=== PATIENT | female | born 1975 | race Caucasian/White ===

== ENCOUNTER 2018-10-23 01:19 | Emergency (ER) | payer MEDICAID ==
[~2018-10-23] VITALS: Ht 162.6 cm; Wt 85.3 kg
[2018-10-23 01:30] VITALS: BP 146/90
--- NOTE | 2018-10-23 01:30 | NUR ---
TO BED # 09 AMBULATORY
--- NOTE | 2018-10-23 01:38 | NUR ---
Dr. Benavidez examining patient.
--- NOTE | 2018-10-23 01:40 | NUR ---
43/F c/o right wrist pain and right thumb for the past few weeks. 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 She denies any recent injury or trauma. No swelling noted at this time.
--- NOTE | 2018-10-23 02:12 | NUR ---
UPON GOING TO DISCHARGE PATIENT, PT STATED SHE DID NOT TELL THE DOCTOR ABOUT HER "COLD" AND WANTED TO BE CHECKED FOR HER "COLD." DR. ROBLES MADE AWARE.
--- NOTE | 2018-10-23 02:47 | NUR ---
X-Ray at bedside.
[2018-10-23 03:17] VITALS: BP 133/86
--- NOTE | 2018-10-23 03:17 | NUR ---
DISCHARGE PAPERS GIVEN TO PT. RX OF TESSALON PERLS GIVEN. SIDE EFFECTS EXPLANIED. INSTRUCTED TO F/U WITH PCP AND WHEN TO RETURN TO ER. PT VERBALLIZED UNDERSTANDING OF DC INSTRUCTIONS. ALL QUESTIONS ANSWERED.
== END 2018-10-23 03:17 | disposition home or self-care (01) ==
LOC: MED 01:19
DX: M25.531 Pain in right wrist (principal); B34.9 Viral infection, unspecified
CPT/HCPCS: 71045; 99283

== ENCOUNTER 2019-01-04 11:09 | Emergency (ER) | payer MEDICAID ==
[~2019-01-04] VITALS: Ht 160 cm; Wt 88.6 kg
[2019-01-04 11:16] VITALS: BP 134/93
--- NOTE | 2019-01-04 11:19 | NUR ---
Pt taken to bed 8.
--- NOTE | 2019-01-04 11:35 | NUR ---
PT PRESENTS TO ED WITH C/O LT LOWER ABD PAIN X 1 WK WITH 4 EPISODES OF DIARRHEA YESTERDAY. DENIES NAUSEA, VOMITING OR FEVER. REPORTS MEDICAL HISTORY OF ULCERATIVE COLITIS. VSS. ERMD TO EVALUATE PT.
[2019-01-04] MEDS ORDERED: ONDANSETRON 4 MG/2 ML VIAL IVP ONE (12:25)
[2019-01-04] MEDS ORDERED: MORPHINE SULFATE 4 MG/ML SYR IM ONE (12:25)
[2019-01-04] MEDS ORDERED: NACL 0.9% 1,000 ML IV ONE (12:25)
[2019-01-04 13:27] LABS: BASOPHILS # (AUTO) 0.1 K/uL (0.00-0.22); BASOPHILS % (AUTO) 0.6 % (0.0-2.0); EOSINOPHILS # (AUTO) 0.1 K/uL (0-0.4); EOSINOPHILS % (AUTO) 1.2 % (0.0-4.0); HEMATOCRIT 38.6 % (36-48); HEMOGLOBIN 12.6 g/dL (12.0-16.0); LYMPHOCYTES # (AUTO) 1.3 K/uL (2.5-16.5); LYMPHOCYTES % (AUTO) 12.6 % (20.5-51.1); MEAN CORPUSCULAR HEMOGLOBIN 26 pg (27-31); MEAN CORPUSCULAR HGB CONC 33 g/dL (33-37); MEAN CORPUSCULAR VOLUME 80.7 fL (80-94); MONOCYTES # (AUTO) 0.5 K/uL (0.8-1.0); MONOCYTES % (AUTO) 5.1 % (1.7-9.3); NEUTROPHILS # (AUTO) 8.1 K/uL (1.8-7.7); NEUTROPHILS % (AUTO) 80.5 % (42.2-75.2); PLATELET COUNT (AUTO) 514 K/uL (140-450); RED BLOOD CELL COUNT(AUTO) 4.78 MIL/uL (4.20-5.40); RED CELL DISTRIBUTION WIDTH 15.7 % (11.6-13.7); WHITE BLOOD COUNT (AUTO) 10.1 K/uL (4.8-10.8)
[2019-01-04 13:41] LABS: ANION GAP 12.5 (8-16); CREATININE 0.7 mg/dL (0.6-1.3); POTASSIUM 3.5 mmol/L (3.5-5.1)
[2019-01-04 13:45] LABS: ALBUMIN 3.2 g/dL (3.4-5.0); TOTAL BILIRUBIN 0.3 mg/dL (0.0-1.0)
--- NOTE | 2019-01-04 14:01 | NUR ---
Patient taken to CT scan via gurney by [employer].
[2019-01-04 15:05] LABS: BILIRUBIN,URINE NEGATIVE (NEGATIVE); BLOOD, URINE NEGATIVE (NEGATIVE); LEUKOCYTE ESTERASE ,URINE NEGATIVE (NEGATIVE); NITRITE, URINE NEGATIVE (NEGATIVE); UGLUCOSE NEGATIVE (NEGATIVE)
[2019-01-04 15:13] LABS: APPEARANCE,URINE CLOUDY (CLEAR); COLOR,URINE YELLOW (YELLOW)
--- NOTE | 2019-01-04 15:15 | NUR ---
Patient appears to be resting comfortably in bed. Vital Signs within normal limits. Respirations even and unlabored.
[2019-01-04] MEDS ORDERED: metroNIDAZOLE 250 MG TAB PO ONE (16:05)
[2019-01-04] MEDS ORDERED: CIPROFLOXACIN 250 MG TAB PO ONE ×2 (16:05→16:30)
--- NOTE | 2019-01-04 16:23 | NUR ---
IV removed, catheter intact and site benign. Applied folded 4x4 gauze and tape to stop bleeding.
[2019-01-04 16:41] VITALS: BP 133/81
--- NOTE | 2019-01-04 16:41 | NUR ---
Patient discharged with v/s stable. Written and verbal after care instructions given and explained. Patient alert, oriented and verbalized understanding of instructions. Ambulatory with steady gait. All questions addressed prior to discharge. ID band removed. Patient advised to follow up with PMD. Rx of FLAGYL, CIPRO, NORCO given. Patient educated on indication of medication including possible reaction and side effects. Opportunity to ask questions provided and answered.
--- NOTE | 2019-01-05 14:25 | NUR ---
Late entry. COnfirmed with RN that 0.9 NS IV completed at 1400.
== END 2019-01-04 16:39 | disposition home or self-care (01) ==
LOC: MED 11:09
DX: K57.92 Diverticulitis of intestine, part unspecified, without perforation or abscess without bleeding (principal); K51.90 Ulcerative colitis, unspecified, without complications
CPT/HCPCS: 36415; 74177; 80053; 81003; 81025; 83690; 84484; 84703; 85025; 85651; 86140; 96372; 96374; 99284; J2270; J2405; J7030; Q9967

== ENCOUNTER 2020-04-03 17:38 | Inpatient (IN) | payer MEDICAID ==
[~2020-04-03] VITALS: Ht 162.6 cm; Wt 86.2 kg
[2020-04-03 17:46] VITALS: BP 159/109
--- NOTE | 2020-04-03 18:07 | NUR ---
pt ambulate to bed 05
--- NOTE | 2020-04-03 18:09 | NUR ---
PATIENT PRESENTS TO ED WITH LOWER LEFT BACK PAIN FOR 4D. PT STATES SHE HAS HX OF ULERATIVE COLITIS. DENIES N/V BUT HAS HAD EPISODES OF DIARRHEA; SKIN IS PINK/WARM/DRY; AAOX4 WITH EVEN AND STEADY GAIT; LUNGS CLEAR BL; HR EVEN AND REGULAR; PT DENIES ANY FEVER, CP, SOB, OR COUGH AT THIS TIME; PATIENT STATES PAIN OF 6/10 AT THIS TIME; VSS; PATIENT POSITIONED FOR COMFORT; HOB ELEVATED; BEDRAILS UP X2; BED DOWN. ER MD MADE AWARE OF PT STATUS. pmhx: ulcerative colitis nkda
[2020-04-03] MEDS ORDERED: KETOROLAC 30 MG/ML VIAL IM ONE (18:40)
[2020-04-03 20:03] LABS: APPEARANCE,URINE HAZY (CLEAR); BILIRUBIN,URINE NEGATIVE (NEGATIVE); BLOOD, URINE TRACE-I (NEGATIVE); COLOR,URINE YELLOW (YELLOW); LEUKOCYTE ESTERASE ,URINE NEGATIVE (NEGATIVE); NITRITE, URINE NEGATIVE (NEGATIVE); UGLUCOSE NEGATIVE (NEGATIVE)
--- NOTE | 2020-04-03 20:07 | NUR ---
denture laboratory technician at bedside for lab draw.
[2020-04-03 20:17] LABS: BASOPHILS # (AUTO) 0.2 K/uL (0.00-0.22); BASOPHILS % (AUTO) 1.1 % (0.0-2.0); EOSINOPHILS # (AUTO) 0.1 K/uL (0-0.4); EOSINOPHILS % (AUTO) 0.6 % (0.0-4.0); HEMATOCRIT 23.2 % (36-48); LYMPHOCYTES # (AUTO) 2.9 K/uL (2.5-16.5); LYMPHOCYTES % (AUTO) 21.6 % (20.5-51.1); MEAN CORPUSCULAR HEMOGLOBIN 16 pg (27-31); MEAN CORPUSCULAR HGB CONC 28 g/dL (33-37); MEAN CORPUSCULAR VOLUME 55.7 fL (80-94); MONOCYTES # (AUTO) 0.9 K/uL (0.8-1.0); MONOCYTES % (AUTO) 6.4 % (1.7-9.3); NEUTROPHILS # (AUTO) 9.4 K/uL (1.8-7.7); NEUTROPHILS % (AUTO) 70.3 % (42.2-75.2); PLATELET COUNT (AUTO) 964 K/uL (140-450); RED BLOOD CELL COUNT(AUTO) 4.17 MIL/uL (4.20-5.40); RED CELL DISTRIBUTION WIDTH 18.8 % (11.6-13.7); WHITE BLOOD COUNT (AUTO) 13.4 K/uL (4.8-10.8)
[2020-04-03] MEDS ORDERED: KETOROLAC 30 MG/ML VIAL ONE (20:17)
[2020-04-03 20:18] LABS: RBC,URINE 11-20 (MOD) /HPF (0-5)
[2020-04-03 20:21] LABS: HEMOGLOBIN 6.5 g/dL (12.0-16.0)
[2020-04-03] MEDS ORDERED: NACL 0.9% 500 ML IV ONE (20:25)
[2020-04-03 20:35] LABS: ALBUMIN 2.5 g/dL (3.4-5.0); ANION GAP 10.1 (8-16); CARBON DIOXIDE 28.6 mmol/L (21-32); CREATININE 0.9 mg/dL (0.6-1.3); POTASSIUM 3.7 mmol/L (3.5-5.1); TOTAL BILIRUBIN 0.2 mg/dL (0.0-1.0)
[2020-04-03 20:52] LABS: PROTHROMBIN TIME 10.3 secs (10.8-13.4)
--- NOTE | 2020-04-03 21:07 | NUR ---
Female Data Security Administrator accompanied female patient for Rectal Exam BY ANTHONY NEELY.
--- NOTE | 2020-04-03 21:08 | NUR ---
COVID SWABS OBTAINED AND SENT TO LAB
[2020-04-03 21:10] LABS: FREE T4 (FREE THYROXINE) 0.88 ng/dL (0.76-1.46); THYROID STIMULATING HORMONE 0.75 uIU/mL (0.34-3.74)
[2020-04-03] MEDS ORDERED: MORPHINE SULFATE 4 MG/ML SYR IVP ONE (21:10)
--- NOTE | 2020-04-03 22:08 | NUR ---
TO CT VIA W/C
[2020-04-04] MEDS ORDERED: ASPI-1822 PO (03:48)
[2020-04-04] MEDS ORDERED: DEXTROSE 5% 1,000 ML IV ONE (04:15)
--- NOTE | 2020-04-04 04:31 | NUR ---
SPOKE WITH DA AT THE AFTER HOURS PHARMACY FOR MEDICATION VERIFICATION
--- NOTE | 2020-04-04 05:00 | NUR ---
BLOOD LABS FOR TYPE & SCREEN COLLECTED AND WALKED TO LAB.
[2020-04-04] MEDS ORDERED: MORPHINE SULFATE 2 MG/ML SYR IVP SCH (06:00)
--- NOTE | 2020-04-04 06:10 | NUR ---
PT CONTINUES WITH C/O PAIN RATED 8/10. CALL TO DR. CALERO. TELEPHONE ORDER RECEIVED
--- NOTE | 2020-04-04 07:10 | NUR ---
REPORT RECEIVED FROM ASTRID GERMAN. TX OF CARE AT THIS TIME.
--- NOTE | 2020-04-04 07:42 | NUR ---
PATIENT HAS BEEN SCREENED AND CATEGORIZED MODERATE NUTRITION RISK. PATIENT WILL BE SEEN WITHIN 3-5 DAYS OF ADMISSION. 04/07/2020 - 04/09/2020 LEA HAMM MBA, RD
--- NOTE | 2020-04-04 07:58 | NUR ---
PT STATES HAS 6/10 HEADACHE. WILL PAGE OFFICE SERVICES COORDINATOR ADMITTING
--- NOTE | 2020-04-04 08:03 | NUR ---
1 UNIT BLOOD TRANSFUSION STATED AT THIS TIME.
--- NOTE | 2020-04-04 08:14 | NUR ---
TELEPHONE ORDER RECEIVED FROM DR. CALERO TO GIVE PG MORPHINE 2MG IM.
[2020-04-04] MEDS ORDERED: guaiFENesin DM 200/20 MG-10 ML 10 ML UDC PO PRN (08:25)
[2020-04-04] MEDS ORDERED: POTASSIUM CHLORIDE 40 MEQ, LIDOCAINE MPF 1% 25 MG in NACL 0.9% 250 ML IV PRN (08:25)
[2020-04-04] MEDS ORDERED: HYDROcodone/APAP 7.5/325 MG 1 TAB PO PRN (08:25)
[2020-04-04] MEDS ORDERED: ZOLPIDEM 5 MG TAB PO PRN (08:25)
[2020-04-04] MEDS ORDERED: ONDANSETRON 4 MG/2 ML VIAL IM/IVP PRN (08:25)
[2020-04-04] MEDS ORDERED: DOCUSATE SODIUM 100 MG GELCAP PO PRN (08:25)
[2020-04-04] MEDS ORDERED: ACETAMINOPHEN 325 MG TAB PO PRN (08:25)
[2020-04-04] MEDS ORDERED: MORPHINE SULFATE 2 MG/ML SYR IM SCH (08:30)
--- NOTE | 2020-04-04 08:40 | NUR ---
xray at bedside
[2020-04-04] MEDS ORDERED: methylPREDNISolone SS 125 MG/2 ML VIAL IVP SCH (09:00)
[2020-04-04] MEDS ORDERED: PANTOPRAZOLE 40 MG INJ VIAL IVP SCH (09:00)
[2020-04-04] MEDS ORDERED: SODIUM FERRIC GLUCONATE 125 MG in NACL 0.9% 100 ML IV SCH (09:30)
[2020-04-04 09:35] VITALS: BP 114/70
--- NOTE | 2020-04-04 09:35 | NUR ---
RECEIVED PT FROM HIGH SCHOOL SPORTS COACH NURSE, PT IS AWAKE IN BED, BLOOD PRODUCT IS RUNNING, ON ROOM AIR, CONTINENT, SAFETY AND FALL PRECAUTIONS IN PLACE, WILL CONTINUE TO MONITOR.
--- NOTE | 2020-04-04 09:35 | NUR ---
Patient will be admitted to care of Dr. Foy. Admited to TELE. Will go to room 129B. Belongings list completed. Report to ASTRID Mcghee.
--- NOTE | 2020-04-04 10:08 | NUR ---
BLOOD PRODUCT FROM ER TRANSFER IS COMPLETE, TEMP 98.1,PULSE 89, RR 16, BP 108/74, O2 SAT 98, DENIES PAIN, WILL CONTINUE TO MONITOR
--- NOTE | 2020-04-04 12:00 | NUR ---
PT IS AWAKE AND ALERT IN BED, NOT COMPLAINT OF PAIN, NO SIGNS OF DISTRESS, WILL CONTINUE TO MONITOR
[2020-04-04 14:04] LABS: CHOL/HDL RATIO 3.8 (1-4.5); FREE T4 (FREE THYROXINE) 0.96 ng/dL (0.76-1.46); PHOSPHORUS 4.6 mg/dL (2.5-4.9)
[2020-04-04] MEDS: SODIUM FERRIC GLUCONATE 125 MG in NACL 0.9% 100 ML IV SCH ×2 (14:30→20:37)
[2020-04-04] MEDS: MORPHINE SULFATE 2 MG/ML SYR IVP PRN ×2 (14:55→21:41)
--- NOTE | 2020-04-04 15:00 | NUR ---
MORPHINE ADMINISTERED TO PT W/IN PARAMETERS, BP 108 SHE STATED 7 OUT OF 10 PAIN LOCATED TO LOWER ABDOMEN AND BACK, WILL CONTINUE TO MONITOR
[2020-04-04] MEDS ORDERED: NICOTINE TRANSD SYS 7 MG/24 HR PATCH TD SCH (15:30)
[2020-04-04] MEDS ORDERED: NICOTINE TRANSD SYS 7 MG/24 HR PATCH TD PRN (15:30)
[2020-04-04] MEDS ORDERED: MESALAMINE 400 MG CAPSULE.DR PO SCH ×2 (17:00)
--- NOTE | 2020-04-04 17:00 | NUR ---
PT PROVIDED JELLO AND APPLE JUICE, PT WAS CHANGED FROM NPO TO FULL LIQUID DIET PER DR. ASHLEY, NO SIGNS OF DISTRESS NOTED, WILL CONTINUE TO MONITOR
--- NOTE | 2020-04-04 19:20 | NUR ---
RECEIVED BEDSIDE REPORT FROM DAY SHIFT NURSE. PATIENT IS AWAKE, ALERT, AND COOPERATIVE. RESPIRATION EVEN UNLABORED ON ROOM AIR. NO DISTRESS NOTED. SKIN IS WARM AND DRY. IV PATENT AND INTACT. PLAN OF CARE WAS DISCUSSED. ALL SAFETY MEASURES IN PLACE. BED IS AT LOW POSITION. CALL LIGHT WITHIN REACH. WILL CONTINUE TO MONITOR.
--- NOTE | 2020-04-04 19:50 | NUR ---
ENDORSED PT TO PATENT LEATHER SORTER NURSE FOR CONTINUITY OF CARE.
[2020-04-04 20:00] VITALS: BP 104/64
[2020-04-04 20:19] LABS: HEMATOCRIT 28.1 % (36-48); HEMOGLOBIN 8.1 g/dL (12.0-16.0)
--- NOTE | 2020-04-04 20:37 | NUR ---
ALL SCHEDULED MEDS WERE GIVEN PER ORDER. NO ASE NOTED. WILL CONTINUE TO MONITOR.
[2020-04-04] MEDS: methylPREDNISolone SS 40 MG/ML VIAL IVP SCH (20:38)
--- NOTE | 2020-04-04 21:41 | NUR ---
PATIENT COMPLAINED OF LOWER BACK PAIN 12/17. PRN PAIN MED ADMINISTERED PER ORDER. WILL CONTINUE TO MONITOR.
--- NOTE | 2020-04-04 23:27 | NUR ---
CHECKED PATIENT. PATIENT SLEEPING RESPIRATION EVEN UNLABORED ON ROOM AIR. NO DISTRESS NOTED. WILL CONTINUE TO MONITOR.
[2020-04-05] VITALS: BP 100/67
--- NOTE | 2020-04-05 00:16 | NUR ---
VITALS WERE TAKEN. PATIENT IN STABLE CONDITION. NO DISTRESS NOTED. WILL CONTINUE TO MONITOR.
--- NOTE | 2020-04-05 02:25 | NUR ---
CHECKED PATIENT. PATIENT SLEEPING RESPIRATION EVEN UNLABORED ON ROOM AIR. NO DISTRESS NOTED. WILL CONTINUE TO MONITOR.
--- NOTE | 2020-04-05 03:55 | NUR ---
CHECKED PATIENT. PATIENT SLEEPING RESPIRATION EVEN UNLABORED ON ROOM AIR. NO DISTRESS NOTED. WILL CONTINUE TO MONITOR.
[2020-04-05 04:00] VITALS: BP 108/61
[2020-04-05 06:22] LABS: BASOPHILS % (AUTO) 0.1 % (0.0-2.0); HEMATOCRIT 24.2 % (36-48); HEMOGLOBIN 7.3 g/dL (12.0-16.0); LYMPHOCYTES # (AUTO) 1.9 K/uL (2.5-16.5); LYMPHOCYTES % (AUTO) 11.9 % (20.5-51.1); MEAN CORPUSCULAR HEMOGLOBIN 18 pg (27-31); MEAN CORPUSCULAR HGB CONC 30 g/dL (33-37); MONOCYTES # (AUTO) 0.8 K/uL (0.8-1.0); MONOCYTES % (AUTO) 5.2 % (1.7-9.3); NEUTROPHILS % (AUTO) 82.8 % (42.2-75.2); PLATELET COUNT (AUTO) 915 K/uL (140-450); RED CELL DISTRIBUTION WIDTH 21.3 % (11.6-13.7); WHITE BLOOD COUNT (AUTO) 15.7 K/uL (4.8-10.8)
[2020-04-05 06:56] LABS: ANION GAP 10.9 (8-16); CARBON DIOXIDE 27.3 mmol/L (21-32); CREATININE 0.7 mg/dL (0.6-1.3); POTASSIUM 4.2 mmol/L (3.5-5.1)
--- NOTE | 2020-04-05 07:15 | NUR ---
ENDORSED PATIENT TO DAY SHIFT NURSE AT BEDSIDE FOR CONTINUITY OF CARE
--- NOTE | 2020-04-05 07:18 | NUR ---
RECEIVED REPORT FROM NIGHT NURSE PATIENT AAOX4, ON ROOM AIR, AMBULATORY, S/P 1 UNIT PACKED RBC ON THE . CT ABDOMEN INDICATES ULCERATIVE FLARE, FULL LIQUID DIET, IV SITES INTACT AND PATENT ON LEFT AC, C DIFF STOOL, WBC STOOL AND URINE NOT COLLECTED. SAFETY MEASURES IN PLACE CALL LIGHT WITHIN REACH.
--- NOTE | 2020-04-05 07:45 | NUR ---
COLLECTED URINE SPECIMEN AND SENT TO LABORATORY.
[2020-04-05 08:00] VITALS: BP 104/71
[2020-04-05] MEDS: methylPREDNISolone SS 40 MG/ML VIAL IVP SCH (08:42)
[2020-04-05] MEDS: SODIUM FERRIC GLUCONATE 125 MG in NACL 0.9% 100 ML IV SCH ×2 (08:43→20:17)
[2020-04-05] MEDS: MORPHINE SULFATE 2 MG/ML SYR IVP PRN (08:59)
--- NOTE | 2020-04-05 08:59 | NUR ---
MEDICATION DUE GIVEN CHECK VITAL SIGNS BP 104/71 AK 92 PT COMPLAINS OF LOWER BACK PAIN 11/16. PAIN MEDICATIONS GIVEN. SAFETY MEASURES IN PLACE AND CALL LIGHT WITHIN REACH. WILL CONTINUE TO MONITOR.
[2020-04-05 09:52] LABS: OPIATE, URINE POS ng/mL (NEG <=2000)
[2020-04-05 09:53] LABS: BARBITURATE, URINE NEGATIVE ng/ml (NEG <=200); BENZODIAZEPINE, URINE NEGATIVE ng/mL (NEG <=200); CANNABINOID, URINE NEGATIVE ng/mL (NEG <=50); COCAINE, URINE NEGATIVE ng/mL (NEG <=300); PHENCYCLIDINE SCREEN,URINE NEGATIVE ng/mL (NEG <=25)
[2020-04-05 12:00] VITALS: BP 112/74
--- NOTE | 2020-04-05 12:00 | NUR ---
PATIENT IS RESTING NO DISTRESS NOTED AND DENIES PAIN.
[2020-04-05] MEDS ORDERED: traMADol 50 MG TAB PO PRN (13:00)
--- NOTE | 2020-04-05 14:30 | NUR ---
DR KNOWLES PLAN OF CARE TO CONTINUE SUPPORTIVE THERAPY WITH IRON REPLACEMENT AND TO OBTAIN STOOL FOR C DIFF AND OCCULT BLOOD.
[2020-04-05 16:00] VITALS: BP 112/72
--- NOTE | 2020-04-05 16:26 | NUR ---
ABDOMINAL XRAY DONE TO RULE OUT CONSTIPATION.
[2020-04-05] MEDS: MESALAMINE 400 MG CAPSULE.DR PO SCH (16:42)
--- NOTE | 2020-04-05 19:10 | NUR ---
RECEIVED BEDSIDE REPORT FROM DAYSHIFT NURSE. PATIENT IS AWAKE, ALERT, AND COOPERATIVE. RESPIRATION IS EVEN AND UNLABORED ON ROOM AIR. SKIN IS INTACT, WARM, AND DRY. BED IS AT LOW POSITION AND CALL LIGHT IS WITHIN REACH. WILL CONTINUE TO MONITOR.
--- NOTE | 2020-04-05 19:11 | NUR ---
ENDORSED TO NIGHT NURSE FOR CONTINUITY OF CARE. PT IS STABLE
[2020-04-05 20:00] VITALS: BP 99/53
--- NOTE | 2020-04-05 20:18 | NUR ---
PT COMPLAINED OF LOWER BACK AND LEG PAIN. PT MEDICATED WITH TRAMADOL PO. NO S/S OF RESPIRATORY DISTRESS. WILL CONTINUE TO MONITOR.
[2020-04-05] MEDS ORDERED: MORPHINE SULFATE 4 MG/ML SYR IVP SCH (21:25)
--- NOTE | 2020-04-05 21:46 | NUR ---
PT COMPLAINED THAT TRAMADOL WAS NOT WORKING. STILL COMPLAINING OF LOWER BACK AND LEG PAIN. PAGED DR. UPTON AND AN ORDER OF MORPHINE 4 MG IV ONCE WAS PUT IN. PT MEDICATED WITH MORPHINE. NO S/S OF RESPIRATORY DISTRESS WILL CONTINUE TO MONITOR. Addendum: 04/05/20 at 2228 by Lazaro Galindo RN RN MORPHINE 4 MG IVP WAS GIVEN
--- NOTE | 2020-04-05 21:59 | NUR ---
ALL SCHEDULED MEDS WERE GIVEN. PT IS STABLE. NO SIGNS OF DISTRESS NOTED. WILL CONTINUE TO MONITOR.
--- NOTE | 2020-04-05 23:22 | NUR ---
CHECKED PATIENT. PATIENT IS SLEEPING. NO S/S OF RESPIRATORY DISTRESS NOTED. WILL CONTINUE TO MONITOR.
[2020-04-06] VITALS: BP 95/54
--- NOTE | 2020-04-06 01:11 | NUR ---
CHECKED PATIENT. PATIENT IS SLEEPING. NO S/S OF RESPIRATORY DISTRESS NOTED. WILL CONTINUE TO MONITOR.
--- NOTE | 2020-04-06 02:14 | NUR ---
CHECKED PATIENT. PATIENT IS ASLEEP IN BED. NO S/S OF RESPIRATORY DISTRESS NOTED. WILL CONTINUE TO MONITOR
--- NOTE | 2020-04-06 03:04 | NUR ---
CHECKED PATIENT. PATIENT IS ASLEEP IN BED. NO S/S OF RESPIRATORY DISTRESS NOTED. WILL CONTINUE TO MONITOR
[2020-04-06 04:00] VITALS: BP 106/66
--- NOTE | 2020-04-06 05:10 | NUR ---
CHECKED ON PATIENT. PATIENT IS ASLEEP. NO DISTRESS NOTED. WILL CONTINUE TO MONITOR.
[2020-04-06 06:07] LABS: T4 (THYROXINE) 11.2 ug/dL (4.5-12.0)
--- NOTE | 2020-04-06 07:15 | NUR ---
ENDORSED PATIENT TO DAY SHIFT NURSE AT BEDSIDE FOR CONTINUITY OF CARE
--- NOTE | 2020-04-06 07:22 | NUR ---
RECEIVED PT FROM CLIN NURSE NURSES DANN, PT IS ASLEEP AND LYING ON THE BED, SIDEWAYS, ON RA, SAFETY AND FALL PRECAUTIONS IN PLACE, IV LINE NOTED ON THE RFA AND LFA BOTH G. 20 ON SALINE LOCKS, RESPIRATION IS EVEN AND NO SIGN OF DISTRESS NOTED, WILL CONTINUE TO MONITOR PT.
[2020-04-06 08:00] VITALS: BP 113/80
[2020-04-06 09:01] LABS: BASOPHILS # (AUTO) 0.1 K/uL (0.00-0.22); BASOPHILS % (AUTO) 0.4 % (0.0-2.0); EOSINOPHILS % (AUTO) 0.1 % (0.0-4.0); HEMATOCRIT 25.7 % (36-48); HEMOGLOBIN 7.3 g/dL (12.0-16.0); LYMPHOCYTES # (AUTO) 3.2 K/uL (2.5-16.5); LYMPHOCYTES % (AUTO) 21.5 % (20.5-51.1); MEAN CORPUSCULAR HEMOGLOBIN 17 pg (27-31); MEAN CORPUSCULAR HGB CONC 29 g/dL (33-37); MEAN CORPUSCULAR VOLUME 59.5 fL (80-94); MONOCYTES % (AUTO) 6.8 % (1.7-9.3); NEUTROPHILS # (AUTO) 10.5 K/uL (1.8-7.7); NEUTROPHILS % (AUTO) 71.2 % (42.2-75.2); PLATELET COUNT (AUTO) 886 K/uL (140-450); RED BLOOD CELL COUNT(AUTO) 4.32 MIL/uL (4.20-5.40); RED CELL DISTRIBUTION WIDTH 20.7 % (11.6-13.7); WHITE BLOOD COUNT (AUTO) 14.8 K/uL (4.8-10.8)
[2020-04-06 09:25] LABS: ANION GAP 12.6 (8-16); CARBON DIOXIDE 28.5 mmol/L (21-32); CREATININE 0.7 mg/dL (0.6-1.3); POTASSIUM 4.1 mmol/L (3.5-5.1)
[2020-04-06] MEDS: SODIUM FERRIC GLUCONATE 125 MG in NACL 0.9% 100 ML IV SCH (09:52)
[2020-04-06] MEDS: predniSONE 20 MG TAB PO SCH (09:53)
[2020-04-06] MEDS: MESALAMINE 400 MG CAPSULE.DR PO SCH ×3 (09:54→16:26)
--- NOTE | 2020-04-06 09:54 | NUR ---
PT WAS GIVEN THE SCHEDULED AM IVPB AND ORAL MEDICATIONS, TOLERATED AND WILL CONTINUE TO MONITOR PT.
--- NOTE | 2020-04-06 10:42 | NUR ---
PT WAS GIVEN A PAIN MEDICATION FOR C/O PAIN RATE OF 6/10, BP IS 125/76, PULSE IS 88 AND O2 SATURATION IS AT 97%, WILL RE-ASSESS AND MONITOR PT.
--- NOTE | 2020-04-06 10:50 | NUR ---
DR. ASHLEY CAME TO THE PT'S ROOM AND SPOKE TO PT REGARDING HER LAST COLONOSCOPY AND MD WHO HAVE SEEN HER AND PT VERBALIZED THAT SHE HAD BEEN SEEN BY DR. WHITING LAST TIME, LESS THAN A YEAR AGO.
[2020-04-06 12:00] VITALS: BP 125/78
[2020-04-06] MEDS: FERROUS SULFATE 325 MG TABEC PO SCH ×2 (12:34→16:26)
--- NOTE | 2020-04-06 12:35 | NUR ---
PT WAS GIVEN THE SCHEDULED MEDICATIONS NOW.
--- NOTE | 2020-04-06 14:19 | NUR ---
PT IS DOING A SPONGE BATH TO HERSELF NOW, PCR RESULT CAME OUT NEGATIVE.
[2020-04-06 16:00] VITALS: BP 126/78
--- NOTE | 2020-04-06 16:26 | NUR ---
PT WAS GIVEN THE SCHEDULED AFTERNOON MEDICATIONS WILL MONITOR PT.
[2020-04-06] MEDS ORDERED: HYDROcodone/APAP 7.5/325 MG 1 TAB PO PRN (16:45)
[2020-04-06] MEDS: HYDROcodone/APAP 7.5/325 MG 1 TAB PO PRN ×2 (18:28→23:36)
--- NOTE | 2020-04-06 18:28 | NUR ---
PT WAS MEDICATED FOR C/O,PAIN OF 6/10.
--- NOTE | 2020-04-06 19:23 | NUR ---
ENDORSED PT TO TURNSTILE COLLECTOR NURSE, RAYMUNDO FOR CONTINUITY OF CARE.
[2020-04-06 20:00] VITALS: BP 113/55
--- NOTE | 2020-04-06 20:00 | NUR ---
RECEIVED BEDSIDE REPORT FROM DAY RN EARLIER FOR CONTINUITY OF CARE. PT A/A/OX4, LAYING IN BED WATCHING TV. DENIES CHEST PAIN,SOB,DIZZINESS AND PALPITATIONS. VSS, AFEBRILE, SATING 98% ON RA. NO SIGN AND SYMPTOMS OF DISTRESS NOTED AT THIS TIME. SR ON MANUFACTURING TECHNICIAN, HR-81. FALL PRECAUTION IMPLEMENTED. BED IN LOW POSITION AND SIDE RAILS UP. INSTRUCTED TO CALL FOR ASSISTANCE AT ALL TIMES. PT VERBALIZED UNDERSTANDING. CALL LIGHT WITHIN REACH.WILL CONTINUE POC AND MONITORING.
--- NOTE | 2020-04-06 22:00 | NUR ---
NO SCHEDULED MEDICATION. PATIENT VERBALIZED THAT SHE WANTED TO HAVE HER PAIN MEDICATION WHEN ITS DUE.
[2020-04-07] VITALS: BP 104/61
--- NOTE | 2020-04-07 | NUR ---
PATIENT VITAL SIGNS STABLE, AFEBRILE, SATING 95% ON RA. SR ON SUPERVISOR RIDE ASSEMBLY, HR-82. SAFETY MEASURES IN PLACED.
--- NOTE | 2020-04-07 02:00 | NUR ---
PATIENT ASLEEP AT THIS TIME. VISIBLE CHEST RISE AND FALL NOTED. SAFETY MEASURES IN PLACED.
[2020-04-07 04:00] VITALS: BP 165/86
--- NOTE | 2020-04-07 04:00 | NUR ---
PATIENT VITAL SIGNS STABLE, AFEBRILE, SATING 96% ON RA. SR ON CONTROL CLERK REPAIRS, HR-79. NOT IN ANY DISTRESS.NO COMPLAIN OF PAIN.
--- NOTE | 2020-04-07 06:48 | NUR ---
PT STABLE. NO ACUTE EVENTS THROUGHOUT THE NIGHT. NO SIGN AND SYMPTOMS OF DISTRESS NOTED AT THIS TIME. NO COMPLAIN OF PAIN. ALL NEEDS ATTENDED. CALL LIGHT WITHIN REACH. WILL ENDORSE THE PT TO THE ONCOMING RN FOR CONTINUITY OF CARE.
[2020-04-07 07:12] LABS: MAGNESIUM 2.1 mg/dL (1.8-2.4); PHOSPHORUS 4.5 mg/dL (2.5-4.9)
--- NOTE | 2020-04-07 07:20 | NUR ---
RECEIVED PATIENT IN STABLE CONDITION FROM AM SHIFT NURSE FOR CONTINUITY OF CARE. AAOX3, ABLE TO MAKE NEEDS KNOWN. RESPIRATIONS EVEN, UNLABORED. SKIN WARM, DRY. SALINE LOCK TO RIGHT FOREARM 20G AND LEFT FOREARM 20G PATENT/INTACT. NO S/S ACUTE DISTRESS. ABDOMEN SOFT, NONTENDER. PATIENT IS CONTINENT OF B/B. PLAN OF CARE DISCUSSED WITH PATIENT. CALL LIGHT WITHIN REACH.
[2020-04-07 08:00] VITALS: BP 113/70
[2020-04-07] MEDS: predniSONE 20 MG TAB PO SCH (08:18)
[2020-04-07] MEDS: FERROUS SULFATE 325 MG TABEC PO SCH ×3 (08:18→16:47)
[2020-04-07] MEDS: MESALAMINE 400 MG CAPSULE.DR PO SCH ×3 (08:19→16:47)
[2020-04-07] MEDS: POLYETHYLENE GLYCOL 17 GM/PKT PO SCH (08:19)
[2020-04-07] MEDS: HYDROcodone/APAP 7.5/325 MG 1 TAB PO PRN ×3 (08:26→22:23)
--- NOTE | 2020-04-07 09:11 | NUR ---
DUE MEDS GIVEN. PATIENT RESTING COMFORTABLY IN BED. NO S/S ACUTE DISTRESS. PROVIDED EDUCATION REGARDING SMOKING CESSATION AND LOWERING STRESS LEVELS WHEN AT HOME. PATIENT VERBALIZED UNDERSTANDING BUT NEEDS REINFORCEMENT. CALL LIGHT WITHIN REACH.
--- NOTE | 2020-04-07 11:00 | NUR ---
PROVIDED EDUCATION REGARDING DIET TO MINIMIZE COLITIS SYMPTOMS. PATIENT VERBALIZED UNDERSTANDING. NO C/O PAIN. NO S/S ACUTE DISTRESS. CALL LIGHT WITHIN REACH.
[2020-04-07 12:00] VITALS: BP 118/75
[2020-04-07 13:19] LABS: BASOPHILS # (AUTO) 0.1 K/uL (0.00-0.22); BASOPHILS % (AUTO) 0.6 % (0.0-2.0); HEMATOCRIT 28.7 % (36-48); HEMOGLOBIN 8.3 g/dL (12.0-16.0); LYMPHOCYTES # (AUTO) 2.1 K/uL (2.5-16.5); LYMPHOCYTES % (AUTO) 12.8 % (20.5-51.1); MEAN CORPUSCULAR HEMOGLOBIN 18 pg (27-31); MEAN CORPUSCULAR HGB CONC 29 g/dL (33-37); MEAN CORPUSCULAR VOLUME 61.1 fL (80-94); MONOCYTES # (AUTO) 0.6 K/uL (0.8-1.0); MONOCYTES % (AUTO) 3.9 % (1.7-9.3); NEUTROPHILS # (AUTO) 13.6 K/uL (1.8-7.7); NEUTROPHILS % (AUTO) 82.7 % (42.2-75.2); PLATELET COUNT (AUTO) 947 K/uL (140-450); RED BLOOD CELL COUNT(AUTO) 4.69 MIL/uL (4.20-5.40); RED CELL DISTRIBUTION WIDTH 22.6 % (11.6-13.7); WHITE BLOOD COUNT (AUTO) 16.5 K/uL (4.8-10.8)
[2020-04-07 13:27] LABS: ANION GAP 14.5 (8-16); CARBON DIOXIDE 25.9 mmol/L (21-32); CREATININE 0.9 mg/dL (0.6-1.3); POTASSIUM 4.4 mmol/L (3.5-5.1)
--- NOTE | 2020-04-07 13:45 | NUR ---
DUE MEDS GIVEN. PATIENT IS RESTING COMFORTABLY IN BED WATCHING TV. NO C/O PAIN. NO S/S ACUTE DISTRESS. CALL LIGHT WITHIN REACH.
--- NOTE | 2020-04-07 15:13 | NUR ---
[facility] NO S/S ACUTE DISTRESS. NO C/O PAIN. CALL LIGHT WITHIN REACH.
--- NOTE | 2020-04-07 17:10 | NUR ---
PATIENT RESTING COMFORTABLY IN BED. NO S/S ACUTE DISTRESS. NO C/O PAIN. CALL LIGHT WITHIN REACH.
[2020-04-07 20:00] VITALS: BP 104/61
--- NOTE | 2020-04-07 20:00 | NUR ---
RECEIVED BEDSIDE REPORT FROM DAY RN EARLIER FOR CONTINUITY OF CARE. PT A/A/OX4, LAYING IN BED WATCHING TV. DENIES ABDOMINAL PAIN, NAUSEA AND VOMITING. NO SIGN AND SYMPTOMS OF DISTRESS NOTED AT THIS TIME. PT VERBALIZED UNDERSTANDING WITH THE POC. CALL LIGHT WITHIN REACH.WILL CONTINUE POC AND MONITORING.
[2020-04-07] MEDS: SULFAMETH/TRIMETH DS 800/160MG 1 TAB PO SCH (20:14)
--- NOTE | 2020-04-07 22:30 | NUR ---
MEDICATED THE PT FOR PAIN REQUESTED AND ORDERED. PT C/O LOWER BACK PAIN. VITAL SIGNS STABLE.
--- NOTE | 2020-04-08 | NUR ---
MEDICATED FOR PAIN EARLIER. NO COMPLAIN OF PAIN FROM THE PATIENT AT THIS TIME. CALL LIGHT WITHIN REACH.
--- NOTE | 2020-04-08 02:00 | NUR ---
PATIENT ASLEEP AT THIS TIME. VISIBLE CHEST RISE AND FALL NOTED. SAFETY MEASURES IN PLACED.
[2020-04-08 04:00] VITALS: BP 109/73
--- NOTE | 2020-04-08 04:00 | NUR ---
PATIENT VITAL SIGNS STABLE, AFEBRILE, SATING 95% ON RA. NOT IN ANY DISTRESS.NO COMPLAIN OF PAIN. SAFETY MEASURES IN PLACED.
[2020-04-08 06:56] LABS: BASOPHILS % (AUTO) 0.2 % (0.0-2.0); EOSINOPHILS # (AUTO) 0.1 K/uL (0-0.4); EOSINOPHILS % (AUTO) 0.4 % (0.0-4.0); HEMATOCRIT 28.2 % (36-48); HEMOGLOBIN 8.4 g/dL (12.0-16.0); LYMPHOCYTES # (AUTO) 3.4 K/uL (2.5-16.5); LYMPHOCYTES % (AUTO) 26.8 % (20.5-51.1); MEAN CORPUSCULAR HEMOGLOBIN 18 pg (27-31); MEAN CORPUSCULAR HGB CONC 30 g/dL (33-37); MEAN CORPUSCULAR VOLUME 61.2 fL (80-94); NEUTROPHILS # (AUTO) 8.2 K/uL (1.8-7.7); NEUTROPHILS % (AUTO) 64.6 % (42.2-75.2); PLATELET COUNT (AUTO) 838 K/uL (140-450); WHITE BLOOD COUNT (AUTO) 12.7 K/uL (4.8-10.8)
[2020-04-08 07:31] LABS: ANION GAP 13.1 (8-16); CREATININE 0.8 mg/dL (0.6-1.3); POTASSIUM 4.1 mmol/L (3.5-5.1)
--- NOTE | 2020-04-08 08:00 | NUR ---
RECEIVED REPORT FROM HOME ENERGY INSPECTOR FOR CONTINUITY OF CARE. PATIENT ALERT AWAKE ORIENTED X4, NOT IN ANY DISTRESS NOTED.INITIAL ASSESSMENT INITIATED. NEEDS ATTENDED. WILL CONTINUE TO MONITOR.
[2020-04-08] MEDS ORDERED: FER325 PO (08:20)
[2020-04-08] MEDS ORDERED: DOCU-300 PO (08:20)
[2020-04-08] MEDS ORDERED: SULF-47 PO (08:20)
[2020-04-08] MEDS ORDERED: ASCO-786 PO (08:20)
[2020-04-08] MEDS ORDERED: MESA400C PO (08:20)
[2020-04-08] MEDS ORDERED: PRED20TA5 PO (08:20)
[2020-04-08] MEDS ORDERED: LACT10CA1 PO (08:20)
[2020-04-08 08:22] LABS: MAGNESIUM 2.1 mg/dL (1.8-2.4); PHOSPHORUS 4.4 mg/dL (2.5-4.9)
[2020-04-08] MEDS: SULFAMETH/TRIMETH DS 800/160MG 1 TAB PO SCH (08:45)
[2020-04-08] MEDS: predniSONE 20 MG TAB PO SCH (08:46)
[2020-04-08] MEDS: FERROUS SULFATE 325 MG TABEC PO SCH ×2 (08:46→12:42)
[2020-04-08] MEDS: MESALAMINE 400 MG CAPSULE.DR PO SCH ×2 (08:48→12:43)
[2020-04-08] MEDS: POLYETHYLENE GLYCOL 17 GM/PKT PO SCH (08:48)
[2020-04-08] MEDS: HYDROcodone/APAP 7.5/325 MG 1 TAB PO PRN (08:55)
--- NOTE | 2020-04-08 13:00 | NUR ---
INFORMED PATIENT THAT SHE WILL GO HOME TODAY, SHE SAID SHE HAS NO CAR AND DEMANDS TAXI VOUCHER. EXPLAINED TO HER THAT WE DON'T PROVIDE IT ONLY BUS PASS, SHE REFUSED BUS PASS, MORTGAGE ACCOUNTING CLERK ANDRESSA SPOKE TO HER.
--- NOTE | 2020-04-08 14:10 | NUR ---
DISCHARGE PATIENT TO HOME VIA TAXI CAB, WITH DC INSTRUCTION GIVEN AND VERBALIZED UNDERSTANDING. IN STABLE CONDITION.
== END 2020-04-08 14:10 | disposition home or self-care (01) | DRG 720 ==
LOC: MED 17:38 → MTU 04-04 04:16 → MMU 04-04 06:17
PROVIDERS: ADMIT Family Medicine; ATTEND Family Medicine
PROC: 30233N1 Transfusion of Nonautologous Red Blood Cells into Peripheral Vein, Percutaneous Approach (ICD-10-PCS; principal; 2020-04-04)
DX: A41.9 Sepsis, unspecified organism (principal); E43 Unspecified severe protein-calorie malnutrition; N39.0 Urinary tract infection, site not specified; Z20.828 Contact with and (suspected) exposure to other viral communicable diseases; K51.90 Ulcerative colitis, unspecified, without complications; D50.9 Iron deficiency anemia, unspecified; M54.5 Low back pain; K92.2 Gastrointestinal hemorrhage, unspecified; D47.3 Essential (hemorrhagic) thrombocythemia; Z68.32 Body mass index [BMI] 32.0-32.9, adult; F15.10 Other stimulant abuse, uncomplicated; Z79.899 Other long term (current) drug therapy
CPT/HCPCS: 36415; 36430; 71045; 74018; 80048; 80053; 80305; 81001; 82150; 82272; 83036; 83540; 83690; 83735; 83880; 84100; 84436; 84439; 84443; 84479; 84484; 85018; 85025; 85610; 85730; 86140; 86886; 86900; 86901; 86920; 87040; 87081; 87086; 96361; 96372; 96374; 99285; C9113; J0696; J1885; J2001; J2270; J2916; J2920; J2930; J3480; J7030; J7060; J7512; P9016; Q0163; Q9967; U0003

== ENCOUNTER 2020-09-02 18:33 | Emergency (ER) | payer MEDICAID ==
[~2020-09-02] VITALS: Ht 162.6 cm; Wt 79.4 kg
[~2020-09-02 18:33] MED LIST: ASCO-786 PO; ASPI-1822 PO; DOCU-300 PO; FER325 PO; LACT10CA1 PO; MESA400C PO; PRED20TA5 PO; SULF-47 PO
[2020-09-02 18:35] VITALS: BP 147/102
--- NOTE | 2020-09-02 18:39 | NUR ---
PT AMBULATED TO ER BED 4 WITH A STEADY GAIT.
--- NOTE | 2020-09-02 18:43 | NUR ---
45 Y/O FEMALE C/O SCABS AND SKIN BUG BITES IN BLE AND BUE X 1 WEEK. PT STATES SHE HAS BEEN LIVING IN FRIEND'S HOUSE X 2WEEKS AND HAS HER BELONGINGS IN A STORAGE UNIT. PT DENIES ANY BED BUGS OR INFESTATION. PT DENIES N/V, DENIES FEVER/CHILLS. PMH: COLITIS, MRSA NKA
[2020-09-02] MEDS ORDERED: HYDR-1093 PO (18:55)
[2020-09-02] MEDS ORDERED: MUPI2CRE22 TP (18:55)
[2020-09-02] MEDS ORDERED: CEPH-588 PO (18:55)
--- NOTE | 2020-09-02 19:07 | NUR ---
Collected wound culture,walked to lab.
[2020-09-02 19:14] VITALS: BP 147/102
--- NOTE | 2020-09-02 19:14 | NUR ---
Patient discharged with v/s stable. Written and verbal after care instructions given and explained. Patient alert, oriented and verbalized understanding of instructions. Ambulatory with steady gait. All questions addressed prior to discharge. ID band removed. Patient advised to follow up with PMD. Rx of KEFLEX 500MG PO BID, HYDROXIZINE 25MG PO BID, AND MUPIROCIN TOPICAL DAILY TO AFFECTED AREA given. Patient educated on indication of medication including possible reaction and side effects. Opportunity to ask questions provided and answered.
== END 2020-09-02 19:14 | disposition home or self-care (01) ==
LOC: MED 18:33
DX: L03.818 Cellulitis of other sites (principal); Z79.899 Other long term (current) drug therapy; W57.XXXA Bitten or stung by nonvenomous insect and other nonvenomous arthropods, initial encounter; Y93.89 Activity, other specified; Y92.89 Other specified places as the place of occurrence of the external cause; Y99.8 Other external cause status
CPT/HCPCS: 87070; 87186; 99283

== ENCOUNTER 2020-12-19 08:18 | Emergency (ER) | payer MEDICAID ==
[~2020-12-19] VITALS: Ht 162.6 cm; Wt 81.6 kg
[~2020-12-19 08:18] MED LIST changes: +CEPH-588 PO; +HYDR-1093 PO; +MUPI2CRE22 TP
[2020-12-19 08:23] VITALS: BP 125/83
--- NOTE | 2020-12-19 08:27 | NUR ---
PT AMBULATED TO ER BED 11 WITH A STEADY GAIT.
--- NOTE | 2020-12-19 08:32 | NUR ---
45 Y/O FEMALE C/O GENERALIZED WEAKNESS, JOINTS PAIN / DESCRIBES ACHE X2 WEEKS. DENIES N/V, DENIES FEVER/+CHILLS. PT STATES "I JUST DON'T FEEL GOOD". PMH: ANEMIA, ULCERATIVE COLITIS, RA NKA
--- NOTE | 2020-12-19 08:45 | NUR ---
DR. OLSON AT PT BEDSIDE FOR FURTHER EVALUATION.
--- NOTE | 2020-12-19 08:54 | NUR ---
ASSEMBLY LINE DRIVER AT PT BEDSIDE.
[2020-12-19 09:13] LABS: BASOPHILS # (AUTO) 0.1 K/uL (0.00-0.22); EOSINOPHILS # (AUTO) 0.2 K/uL (0-0.4); EOSINOPHILS % (AUTO) 2.9 % (0.0-4.0); HEMATOCRIT 40.9 % (36-48); HEMOGLOBIN 13.3 g/dL (12.0-16.0); LYMPHOCYTES % (AUTO) 26.3 % (20.5-51.1); MEAN CORPUSCULAR HEMOGLOBIN 27 pg (27-31); MEAN CORPUSCULAR HGB CONC 32 g/dL (33-37); MEAN CORPUSCULAR VOLUME 82.4 fL (80-94); MONOCYTES # (AUTO) 0.5 K/uL (0.8-1.0); MONOCYTES % (AUTO) 6.6 % (1.7-9.3); NEUTROPHILS # (AUTO) 4.8 K/uL (1.8-7.7); NEUTROPHILS % (AUTO) 63.2 % (42.2-75.2); PLATELET COUNT (AUTO) 415 K/uL (140-450); RED BLOOD CELL COUNT(AUTO) 4.97 MIL/uL (4.20-5.40); RED CELL DISTRIBUTION WIDTH 14.7 % (11.6-13.7); WHITE BLOOD COUNT (AUTO) 7.5 K/uL (4.8-10.8)
[2020-12-19 09:36] LABS: ALBUMIN 3.3 g/dL (3.4-5.0); ANION GAP 12.4 (8-16); CARBON DIOXIDE 22.9 mmol/L (21-32); CREATININE 0.9 mg/dL (0.6-1.3); POTASSIUM 3.3 mmol/L (3.5-5.1); TOTAL BILIRUBIN 0.2 mg/dL (0.0-1.0)
[2020-12-19] MEDS ORDERED: POTASSIUM CHLORIDE 10 MEQ TABER PO SCH (09:45)
--- NOTE | 2020-12-19 10:54 | NUR ---
PT SLEEPING, EASILY AROUSABLE VISIBLE EQUAL RISE AND FALL OF CHEST, VSS, WILL CONTINUE TO MONITOR.
[2020-12-19 11:58] VITALS: BP 112/81
--- NOTE | 2020-12-19 11:59 | NUR ---
Patient discharged with v/s stable. Written and verbal after care instructions given and explained FATIGUE AND HYPOKALEMIA. Patient verbalized understanding. Ambulatory with steady gait. All questions addressed prior to discharge. Advised to follow up with PMD.
== END 2020-12-19 11:59 | disposition home or self-care (01) ==
LOC: MED 08:18
DX: R53.1 Weakness (principal); E87.6 Hypokalemia; F17.290 Nicotine dependence, other tobacco product, uncomplicated; F15.90 Other stimulant use, unspecified, uncomplicated
CPT/HCPCS: 36415; 80053; 84703; 85025; 86886; 86900; 86901; 99283